=== PATIENT | female | born 1955 | race Native Hawaiian/Other Pacific Islander ===

== ENCOUNTER 2017-04-27 11:14 | Inpatient (IN) | payer MEDICAID ==
[2017-04-27 11:15] VITALS: BMI 27.1
[2017-04-27] MEDS ORDERED: Sodium Chloride 0.9% 1,000 ML IV ONE ×2 (11:42→16:14)
[2017-04-27] MEDS ORDERED: Sodium Chloride 0.9% 1,000 ML ONE ×2 (11:50→16:46)
[2017-04-27 12:07] LABS: BASO % 0.6 % (0.0-2.0); EOS # 0.2 K/uL (0.0-0.7); EOS % 2.2 % (0.0-4.0); HEMATOCRIT 42.8 % (34.0-47.0); LYMPH # 2.6 K/uL (1.0-4.3); LYMPH % 37.2 % (20.0-40.0); MEAN CELL VOLUME 87.5 fL (81.0-99.0); MEAN CORPUSCULAR HEMOGLOBIN 29.7 pg (27.0-31.0); MEAN CORPUSCULAR HGB CONC 33.9 g/dL (33.0-37.0); MEAN PLATELET VOLUME 7.7 fL (7.2-11.7); MONO # 0.5 K/uL (0.0-0.8); MONO % 6.5 % (0.0-10.0); RED CELL DISTRIBUTION WIDTH 14.3 % (11.5-14.5); WHITE BLOOD COUNT 7.1 K/uL (4.8-10.8)
[2017-04-27 12:28] LABS: RBC URINE < 1 /hpf (0-3); URINE BACTERIA OCC (<OCC); URINE BILIRUBIN NEGATIVE (NEGATIVE); URINE BLOOD NEGATIVE (NEGATIVE); URINE COLOR Straw (YELLOW); URINE GLUCOSE (UA) NORMAL (Normal); URINE KETONE NEGATIVE (NEGATIVE); URINE LEUKOCYTE ESTERASE 2+ Leu/uL (Negative); URINE PROTEIN NEGATIVE (NEGATIVE); URINE UROBILINOGEN NORMAL mg/dL (0.2-1.0); WBC URINE 28 /hpf (0-5)
[2017-04-27 12:57] LABS: ALB/GLOB RATIO 1.3 (1.0-2.1); ALKALINE PHOSPHATASE 162 U/L (38-126); ALT/SGPT 41 U/L (9-52); AST/SGOT 50 U/L (14-36); BILIRUBIN,TOTAL 0.6 mg/dL (0.2-1.3); BLOOD UREA NITROGEN 24 mg/dL (7-17); CALCIUM 9.3 mg/dl (8.6-10.4); CARBON DIOXIDE 30 mmol/L (22-30); CHLORIDE 104 mmol/L (98-107); GFR AFRICAN-AMERICAN > 60; GLUCOSE,RANDOM 104 mg/dL (65-105); POTASSIUM 4.3 mmol/L (3.6-5.2); SODIUM 141 mmol/L (132-148); TOTAL PROTEIN 7.8 g/dL (6.3-8.3)
--- NOTE | 2017-04-27 14:11 | C.PDOC ---
History Of Present Illness Patient presents to ED c/o feeling generalized weakness, lightheadedness when she was out with friends (standing). Patient has h/o metastatic breast CA, currently getting chemotherapy - herceptin (saturday was most recent). Other PMHx includes peripheral neuropathy, anemia, bronchitis, HTN, hyperlipidemia, CKD and seizure disorder. She states she has very little sensation in her lower legs, particularly at the bottom of her feet. She admits to prior episodes of similar sensation, and denies urinary retention or bowel/bladder inconitence. Patient also denies cough, fever, vomiting/diarrhea, dysuria, chest pain, SOB, visual changes, facial droop, slurred speech. Time Seen by Provider: 04/27/17 11:25 Chief Complaint (Nursing): Weakness/Neurological Deficit History Per: Patient History/Exam Limitations: no limitations Onset/Duration Of Symptoms: Mins Current Symptoms Are (Timing): Still Present Activity At Onset Of Symptoms: Standing Associated Symptoms Preceding Syncopal Episode: Lightheadedness Fall Associated With With Symptoms: No Severity: Moderate Past Medical History Reviewed: Historical Data, Nursing Documentation, Vital Signs Vital Signs: Last Vital Signs Temp 97.9 F 04/27/17 11:18 Pulse 65 04/27/17 17:10 Resp 18 04/27/17 17:10 BP 155/72 H 04/27/17 17:10 Pulse Ox 100 04/27/17 18:33 - Medical History PMH: Anemia, Bronchitis, Fractures (Right Wrist), Gall Bladder Disease, HTN, Hypercholesterolemia, Kidney Stones (Right kidney), Malignancy (metastatic breast), Chronic Kidney Disease, Seizures - [facility] Procedures INCIS W REM OF FORIEGN BODY OR DEV FROM SKIN & SUBCUT TISSUE (10/22/14) LYMPHATIC STRUCT BIOPSY (03/10/13) REMOV URETERAL DRAIN (12/18/13) RETROGRADE PYELOGRAM (09/18/13) TU REMOV URETER OBSTRUCT (09/18/13) URETERAL CATHETERIZATION (09/18/13) Family History: States: No Known Family Hx - Social History Hx Tobacco Use: No Hx Alcohol Use: No Hx Substance Use: No - Immunization History Hx Tetanus Toxoid Vaccination: No Hx Influenza Vaccination: No Hx Pneumococcal Vaccination: No Review Of Systems Except As Marked, All Systems Reviewed And Found Negative. Constitutional: Negative for: Fever, Chills Cardiovascular: Negative for: Chest Pain, Palpitations Respiratory: Negative for: Cough, Shortness of Breath Gastrointestinal: Positive for: Nausea. Negative for: Vomiting, Abdominal Pain , Diarrhea Genitourinary: Negative for: Dysuria, Hematuria Neurological: Positive for: Numbness (decreased sensation in B/L LEs), Dizziness (lightheadedness). Negative for: Confusion, Seizures, Headache Physical Exam - Physical Exam Appears: Well, Non-toxic, Other (tearful, mildly uncomfortable) Skin: Normal Color, Warm, Dry Head: Atraumatic, Normacephalic Eye(s): bilateral: Normal Inspection, PERRL, EOMI Oral Mucosa: Moist Cardiovascular: Rhythm Regular Respiratory: Normal Breath Sounds, No Rales, No Rhonchi, No Wheezing Gastrointestinal/Abdominal: Normal Exam, Bowel Sounds, Soft, No Tenderness Back: No CVA Tenderness, No Vertebral Tenderness, Paraspinal Tenderness (right sided paralumbar TTP at approx L3-L5 area) Extremity: Normal ROM, No Pedal Edema, No Calf Tenderness Pulses: Left Dorsalis Pedis: Normal, Right Dorsalis Pedis: Normal Neurological/Psych: Oriented x3, Normal Speech, Normal Cognition, Normal Cranial Nerves, No Cerebellar Signs, Normal Motor, No Normal Sensation ( decreased sensation B/L LEs), No Dysarthria, No Romberg ED Course And Treatment - Laboratory Results Result Diagrams: 04/27/17 12:00 04/27/17 12:00 O2 Sat by Pulse Oximetry: 100 (RA) Pulse Ox Interpretation: Normal - CT Scan/US Head CT Other Rad Studies (CT/US): Read By Radiologist, Radiology Report Reviewed CT/US Interpretation: Accession No. : [id number]. Patient Name / ID : LYNETTE MATHIS / [id number]. Exam Date : 04/27/2017 14:03:55 ( Approved ). Study Comment : Sex / Age : F / 61Y. Creator : Александр Dominugez MD. Dictator : Александр Dominguez MD. Shovel Operator : Crab Fisherman : Александр Dominguez MD. Approver2 : Report Date : 04/27/2017 14:28:44. My Comment : . PROCEDURE: CT HEAD WITHOUT CONTRAST. HISTORY: dizziness, headache, met breast CA. COMPARISON: Comparison is made to the previous study dated 02/17/2016. TECHNIQUE: Axial computed tomography images were obtained through the head/ brain without intravenous contrast. Radiation dose: Total exam DLP = 894.8 mGy -cm. This CT exam was performed using one or more of the following dose reduction techniques: Automated exposure control, adjustment of the mA and/or kV according to patient size, and/or use of iterative reconstruction technique. FINDINGS: HEMORRHAGE: No intracranial hemorrhage. BRAIN: No mass effect or edema. No atrophy or chronic microvascular ischemic changes. VENTRICLES: Unremarkable. No hydrocephalus. CALVARIUM: Unremarkable. PARANASAL SINUSES: Unremarkable as visualized. No significant inflammatory changes. MASTOID AIR CELLS: Unremarkable as visualized. No inflammatory changes. OTHER FINDINGS: None. IMPRESSION: No evidence of acute intracranial hemorrhage mass effect or midline shift. If clinically warranted further assessment by enhanced CT or MRI may be obtained. Progress Note: Blood work, UA, EKG, CT head ordered and reviewed. Patient given IV NS bolus. Reevaluation Time: 18:10 Reassessment Condition: Improved (Patient reassessed, continues to c/o dizziness (room spinning around her), only minimally improved after IV fluids, PO meclizine and IV ativan. Will discuss with Dr. Lew, pending call back.) - Physician Consult Information Physician Contacted: Aimee Lew Outcome Of Conversation: Discussed patient with hem/onc, will see patient on consult, states Dr. Landaverde is her neurologist - will also consult. Prior records reviewed, patient admitted several times to Dr. Charisse Caballero, will contact him for admission. NIHSS Stroke Scale - Date/Time Evaluation Performed Date Performed: 04/27/17 Time Performed: 11:18 When Was NIHSS Performed: Baseline - How Severe is the Stoke Level of Consciousness: 0=Alert LOC to Questions: 0=Both comments correct LOC to commands: 0=Obeys both correctly Best Gaze: 0=Normal Visual: 0=No visual loss Facial: 0=Normal Motor Arm - Left: 0=No drift Motor Arm - Right: 0=No drift Motor Leg - Left: 0=No drift Motor Leg - Right: 0=No drift Limb Ataxia: 0=Absent Sensory: 1=Mild to moderate loss (B/L feet) Best Language: 0=No aphasia Dysarthia: 0=Normal articulation Extinction & Inattention (Neglect): 0=Normal, no object Score: 1 Severity Of Stroke: 1-4= Minor Stroke rTPA Inclusion/Exclusion - Refusal of Treatment Patient Refused Treatment: No - Inclusion Criteria for Altepase Patient is 18 years or Older: Yes The Clinical Diagnosis of Ischemic Stroke That is Causing a Potentially Disabling Neurological Deficit: No Time of Onset is Well Established to be Less Than 270 Minute Before Treatment Would Begin: No Risk/Benefit Discussed With Patient/Family Member Present: No Disposition - Disposition
--- NOTE | 2017-04-27 14:30 | CT ---
PROCEDURE: CT HEAD WITHOUT CONTRAST. HISTORY: dizziness, headache, met breast CA COMPARISON: Comparison is made to the previous study dated 02/17/2016 TECHNIQUE: Axial computed tomography images were obtained through the head/brain without intravenous contrast. Radiation dose: Total exam DLP = 894.8 mGy-cm. This CT exam was performed using one or more of the following dose reduction techniques: Automated exposure control, adjustment of the mA and/or kV according to patient size, and/or use of iterative reconstruction technique. FINDINGS: HEMORRHAGE: No intracranial hemorrhage. BRAIN: No mass effect or edema. No atrophy or chronic microvascular ischemic changes. VENTRICLES: Unremarkable. No hydrocephalus. CALVARIUM: Unremarkable. PARANASAL SINUSES: Unremarkable as visualized. No significant inflammatory changes. MASTOID AIR CELLS: Unremarkable as visualized. No inflammatory changes. OTHER FINDINGS: None. IMPRESSION: No evidence of acute intracranial hemorrhage mass effect or midline shift. If clinically warranted further assessment by enhanced CT or MRI may be obtained.
--- NOTE | 2017-04-28 09:23 | RAD ---
PROCEDURE: CHEST RADIOGRAPH, 1 VIEW HISTORY: SOB COMPARISON: Comparison is made to 04/16/2016 FINDINGS: LUNGS: No evidence of new infiltrate or consolidation in the lungs. PLEURA: No pneumothorax or pleural fluid seen. CARDIOVASCULAR: The cardiac silhouette is mildly enlarged. Right-sided Infusaport is again seen in place. OSSEOUS STRUCTURES: No significant abnormalities. VISUALIZED UPPER ABDOMEN: Normal. OTHER FINDINGS: None. IMPRESSION: Mild cardiomegaly. No significant interval change since the previous exam.
[2017-04-28] MEDS: Enoxaparin 30 mg Syringe SC SCH (10:26)
[2017-04-28] MEDS: Pantoprazole 40 mg EC Tab PO SCH (10:26)
--- NOTE | 2017-04-28 12:12 | CP.PCM.HP ---
Past Patient History - Infectious Disease Hx of Infectious Diseases: None - Past Medical History & Family History Past Medical History?: Yes - Past Social History Smoking Status: Never Smoked - CARDIAC Hx Hypercholesterolemia: Yes Hx Hypertension: Yes - PULMONARY Hx Bronchitis: Yes - NEUROLOGICAL Hx Seizures: Yes - HEENT Hx HEENT Problems: No - RENAL Hx Chronic Kidney Disease: Yes Hx Kidney Stones: Yes (Right kidney) - ENDOCRINE/METABOLIC Hx Endocrine Disorders: No - HEMATOLOGICAL/ONCOLOGICAL Hx Anemia: Yes - INTEGUMENTARY Hx Dermatological Problems: No - MUSCULOSKELETAL/RHEUMATOLOGICAL Hx Falls: Yes - GASTROINTESTINAL Hx Gall Bladder Disease: Yes - GENITOURINARY/GYNECOLOGICAL Hx Genitourinary Disorders: Yes Hx Hematuria: Yes Hx Urinary Tract Infection: Yes Other/Comment: HAS STENTS - PSYCHIATRIC Hx Substance Use: No - SURGICAL HISTORY Hx Surgeries: Yes Hx Mastectomy: Yes (LEFT MASTECTOMY 2006) Hx Vascular Access Device: Yes (RT. CHEST) Other/Comment: CYSTO WITH STENTS LITHOTRIPSY /LUNG BIOPSY CT GUIDED - ANESTHESIA Hx Anesthesia: Yes Hx Anesthesia Reactions: No Hx Malignant Hyperthermia: No Has any member of the family had a problem w/ anesthesia?: No Meds Allergies/Adverse Reactions: Allergies Allergy/AdvReac Type Severity Reaction Status Date / Time lapatinib ditosylate AdvReac Verified 04/27/17 11:23 [From [facility]] Physical Exam - Constitutional Appears: Well - Head Exam Head Exam: ATRAUMATIC, NORMAL INSPECTION, NORMOCEPHALIC - Eye Exam Eye Exam: EOMI, Normal appearance, PERRL Pupil Exam: NORMAL ACCOMODATION, PERRL - ENT Exam ENT Exam: Mucous Membranes Moist, Normal Exam - Neck Exam Neck exam: Positive for: Normal Inspection - Respiratory Exam Respiratory Exam: Decreased Breath Sounds - Cardiovascular Exam Cardiovascular Exam: REGULAR RHYTHM, +S1, +S2 - GI/Abdominal Exam GI & Abdominal Exam: Diminished Bowel Sounds, Soft - Rectal Exam Rectal Exam: Deferred Results - Vital Signs Recent Vital Signs: Last Vital Signs Temp 98.3 F 04/28/17 08:45 Pulse 71 04/28/17 10:25 Resp 18 04/28/17 08:45 BP 123/74 04/28/17 10:25 Pulse Ox 96 04/28/17 08:45 - Labs Result Diagrams: 04/27/17 12:00 04/27/17 12:00 Labs: Laboratory Results - last 24 hr 04/27/17 04/27/17 12:00 12:09 Sodium 141 Potassium 4.3 Chloride 104 Carbon Dioxide 30 Anion Gap 12 BUN 24 H Creatinine 0.9 Est GFR ( Amer) > 60 Est GFR (Non-Af Amer) > 60 Random Glucose 104 Calcium 9.3 Total Bilirubin 0.6 AST 50 H ALT 41 Alkaline Phosphatase 162 H Total Creatine Kinase 66 Troponin I 0.0210 Total Protein 7.8 Albumin 4.4 Globulin 3.4 Albumin/Globulin Ratio 1.3 Urine Color Straw Urine Clarity Clear Urine pH 5.0 Ur Specific [place] 1.004 Urine Protein Negative Urine Glucose (UA) Normal Urine Ketones Negative Urine Blood Negative Urine Nitrate Negative Urine Bilirubin Negative Urine Urobilinogen Normal Ur Leukocyte Esterase 2+ H Urine WBC (Auto) 28 H Urine RBC (Auto) < 1 Urine Bacteria Occ H
--- NOTE | 2017-04-28 20:37 | CON ---
NEUROLOGY CONSULTATION REFERRING PHYSICIAN: Shaggy Caballero MD. REASON FOR CONSULTATION: Generalized weakness and syncope. HISTORY OF PRESENT ILLNESS: The patient is a 61 years old pleasant lady, right handed with past medical history of metastatic breast cancer with questionable metastasis to the brain as per the patient, hypertension, hyperlipidemia, seizure disorder, anemia, bronchitis, peripheral neuropathy. The patient was admitted because of an episode of near syncope and dizziness, diaphoresis, clamminess, cold associated with palpitation and nausea while she was standing. The patient was at a green party the night before and the patient contributed that she was probably exhausted. Although, the patient is complaining from dizziness while changing position vertically and had similar episode of near syncope and clamminess and cold, diaphoresis recently as well. The patient has been on chemotherapy and the patient was scheduled on Saturday, but the patient postponed it this week because of the friend's green party. The patient denies any double vision, blurred vision, photophobia, phonophobia. Complained from generalized fatigue and weakness. The patient states that she has no strength. The patient although was advised to use a walker, but the patient does not want to use it. PAST MEDICAL HISTORY: As mentioned above. SOCIAL HISTORY: No smoking, ethanol or drug abuser. MEDICATIONS: Meclizine, ceftriaxone, levetiracetam, enoxaparin, gabapentin, pantoprazole, lisinopril, lorazepam. PHYSICAL EXAMINATION: MENTAL STATE: The patient is alert, awake, oriented x3. Normal naming, repetition and comprehension. No agnosia. No apraxia. No right to left confusion. No finger agnosia. Double simultaneous stimulation intact. VITAL SIGNS: Blood pressure 155/72, pulse 65, respirations 18, temperature 97.9. CRANIAL NERVES: Pupils symmetrically reactive. No facial asymmetry. No field defect. V1 to V3 intact. Tongue midline. Gag intact. Accessory nerve intact. Neck flexion and extension 5/5. Motor: Normal tone in upper and lower extremities. No pronation drip. No tremors, action, postural. Upper extremities deltoid, elbow and supervisor purification overall 5-/5. Lower extremities 4+ to 5/5. Knee and ankle 5/5. Deep tendon reflexes 1 in upper extremities, absent in bilateral lower extremities, plantarflexion. Sensory: Pinprick, light touch symmetrical. Coordination: Ymxill-cb-phut intact. LABORATORY DATA: CAT scan of the brain, no evidence of acute intracranial abnormalities. IMPRESSION: The patient has syncope. It is most likely secondary to cerebellar hypoperfusion secondary to hypotension, possibility of autonomic neuropathy cannot be excluded secondary to the chemotherapy. 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 The patient has no reflexes in entire lower extremities. I have advised the patient to change position vertically cautiously and slowly. There is no need for EEG at this point or further workup unless MRI of the brain with and without contrast was not done. I will discuss the case with Dr. Akhil salgado if it was not done recently, although the patient has been seeing Dr. Landaverde and she was started on Keppra by him because of the seizures and abnormality on the EEG. Neurology wilder, no further workup recommended at this point. EEG will not change the management. Already the patient is on levetiracetam and the finding suggestive of postural hypotension rather than seizures. Thank you for the consultation and Dr. Landaverde will follow up the patient tomorrow. Ben Parikh MD
--- NOTE | 2017-04-29 09:48 | CP.PCM.PN ---
Subjective - Date & Time of Evaluation Date of Evaluation: 04/29/17 Time of Evaluation: 09:44 - Subjective Subjective: PGY-[address] Caballero's service: Pt seen and examined at bedside. Nursing reports no acute events overnight. Pt is for MRI Brain this AM. She reports her weakness/lightheadedness that she was admitted for on 04/27, has resolved. She is tearful, and is asking when she can go home. She denies bowel/bladder incontinence, SOB, chest pain, visual changes , surred speech, or facial droop. Objective - Vital Signs/Intake and Output Vital Signs (last 24 hours): Temp Pulse Resp BP Pulse Ox 98.2 F 62 18 133/68 97 04/29/17 07:15 04/29/17 07:15 04/29/17 07:15 04/29/17 07:15 04/29/17 07:15 - Medications Medications: Current Medications Aspirin (Ecotrin) 81 mg PO DAILY [facility] Enoxaparin Sodium (Lovenox) 30 mg SC DAILY [facility] Last Admin: 04/28/17 10:26 Dose: 30 mg Gabapentin (Neurontin) 300 mg PO BID [facility] Last Admin: 04/28/17 17:42 Dose: 300 mg Ceftriaxone Sodium 1 gm/ (Sodium Chloride) 100 mls @ 50 mls/30 min IVPB DAILY [facility] Last Admin: 04/28/17 10:26 Dose: 50 mls/30 min Levetiracetam (Keppra) 750 mg PO BID [facility] Last Admin: 04/28/17 17:41 Dose: 750 mg Lisinopril (Zestril) 5 mg PO DAILY [facility] Last Admin: 04/28/17 10:26 Dose: 5 mg Meclizine HCl (Antivert) 25 mg PO Q4 PRN PRN Reason: Dizziness Pantoprazole Sodium (Protonix Ec Tab) 40 mg PO DAILY [facility] Last Admin: 04/28/17 10:26 Dose: 40 mg - Labs Labs: 04/27/17 12:00 04/27/17 12:00 - Constitutional Appears: Non-toxic, No Acute Distress - Head Exam Head Exam: ATRAUMATIC, NORMAL INSPECTION - Eye Exam Eye Exam: EOMI, Normal appearance. absent: Scleral icterus Pupil Exam: PERRL - ENT Exam ENT Exam: Mucous Membranes Moist - Neck Exam Neck Exam: Full ROM - Respiratory Exam Respiratory Exam: Clear to Ausculation Bilateral, NORMAL BREATHING PATTERN. absent: Rales, Rhonchi, Wheezes - Cardiovascular Exam Cardiovascular Exam: REGULAR RHYTHM, +S1, +S2 - GI/Abdominal Exam GI & Abdominal Exam: Soft, Normal Bowel Sounds. absent: Tenderness - Extremities Exam Extremities Exam: Normal Inspection. absent: Calf Tenderness - Back Exam Back Exam: absent: CVA tenderness (L), CVA tenderness (R) - Neurological Exam Neurological Exam: Alert, Awake, Oriented x3 Neuro motor strength exam: Left Upper Extremity: 5, Right Upper Extremity: 5, Left Lower Extremity: 5, Right Lower Extremity: 5 Additional comments: Negative romberg, Finger to nose intact, no appreciable facial droop, or slurred speech - Psychiatric Exam Psychiatric exam: Normal Affect, Normal Mood - Skin Skin Exam: Normal Color, Warm Assessment and Plan - Assessment and Plan (Free Text) Plan: Syncopal episode Admit to telemetry Troponin negative x 1 CXR (04/27/17): Mild cardiomegaly CT Head (04/27/17): No acute abnormality f/u MRI (04/28/17): Focal signal abnormality in left superior cerebellum may represent an age indeterminate likely subacute or chronic infarction. No acute intracranial abnormality (see full report) f/u ECHO EEG: pt can receive as outpatient per Dr. Caballero Carotid Duplex (04/29/17): no stenosis b/l Neuro Consult Dr. Parikh/Akhil, help appreciated - most likely 2/2 cerebellar hypoperfusion (Hypotension) but autonomic neuropathy 2/2 chemotherapy remains in differential - pt with sensory neuropathy - if MRI negative, no further workup recommended ASA 81mg PO Daily Meclizine 25mg PO Q4H PRN Sensory neuropathy Neurontin 300mg PO BID Breast Cancer w. mets Hem/Onc Dr. Lew, help appreciated Pt treated with herceptin - last treatment, last saturday UTI UA (04/27/17): LE 2+, WBC 29, Occasional bacteria Ceftriaxone 1gm IV Daily (Day 2) Urine culture (04/27/17): No growth HTN Elevated over course Increase Lisinopril to 10 mg PO daily Hyperlipidemia Restart Crestor 20mg PO HS Seizure Disorder Sees Dr. Landaverde as outpatient Continue home Keppra Hx Anemia Hgb/MCV WNL Prophylaxis SCDs Lovenox 30mg SC Daily Protonix 40mg PO Daily Heart healthy Diet Disposition: Marked for discharge with caveat of pending results of MRI/ECHO/ Carotid US Roderick Casas PGY-2
--- NOTE | 2017-04-29 10:17 | MRI ---
PROCEDURE: MRI BRAIN WITHOUT CONTRAST HISTORY: [employer] STROKE COMPARISON: Noncontrast head CT from 04/27/2017. TECHNIQUE: Multiplanar, multisequence MR images of the brain were obtained without intravenous contrast enhancement. FINDINGS: HEMORRHAGE: None DWI: No evidence of an acute or early subacute infarction. BRAIN PARENCHYMA: There is a focal T2/FLAIR hyperintense lesion in the left superior cerebellum. There is no mass effect or abnormal extra-axial fluid collection. The midline sagittal structures are normal. VENTRICLES: There is mild age-related global parenchymal volume loss and proportionate enlargement of the ventricles and cortical sulci. CRANIUM: Unremarkable. ORBITS: Grossly unremarkable. PARANASAL SINUSES/MASTOIDS: Clear VASCULAR SYSTEM: Skull base flow voids intact. OTHER FINDINGS: None. IMPRESSION: 1. Focal signal abnormality in the left superior cerebellum may represent an age indeterminate likely subacute or chronic infarction. 2. No acute intracranial abnormality.
--- NOTE | 2017-04-29 10:46 | PN ---
NEUROLOGICAL FOLLOWUP EVALUATION DATE: 04/29/2017 REASON FOR THE FOLLOWUP EVALUATION: Near syncopal attacks. SUBJECTIVE: Patient was seen and evaluated by Dr. Ben Parikh, who was covering me over the weekend. Patient came to [facility] with a history of near syncopal attack, being evaluated and her consultation and workup is appreciated. Patient is presenting with deprived sleep with a preceding dancing and democrat without alcohol use. Slept a little hours overnight, woke up around 6:30 from the hotel, going to the restaurant, on her way, abrupt onset of lightheadedness and both leg feel like jelly and tend to about to fall. Immediately, in the restaurant, grabbed the chair, made her to sit down. No association with loss of vision or bulbar dysfunction. No history of double vision. Patient denies headache associating with this problem. She never had this problem in the past. No history of neck pain. No history of lower back pain. No bowel or bladder incontinence associating this event. PAST MEDICAL HISTORY: Significant for breast cancer, status post radiation and the chemotherapy. This is second chemotherapy, been on 5-FU. Patient had a history of seizures, being controlled with levetiracetam; painful neuropathy, being controlled with gabapentin. PHYSICAL EXAMINATION: VITAL SIGNS: Blood pressure 131/76, mean artery pressure of 94, respiratory rate 18, temperature afebrile. NECK: Supple. No carotid bruits. HEART: Sounds regular. CHEST: Fair air entry. EXTREMITIES: No edema in legs. NEUROLOGICAL: Her speech is clear. Mentation is clear. Cranial nerve examination: Extraocular movement normal. No nystagmus. No facial sensory deficit. No facial asymmetry. Hearing is normal. Tongue is midline. Good gag. Motor examination: No drift. Power is symmetric on all 4 extremities. Deep tendon reflexes trace. Plantars are downgoing. Sensory examination: Grossly intact. No cortical sensory loss. Coordination: Hhdple-eioo-gmltxa test is intact. DIAGNOSTIC AND LABORATORY DATA: Her recent workup is CT of the head reported as negative for acute pathology. Blood workup: WBC 7.1, hemoglobin 14.5, hematocrit 42.8, platelet 260. Sodium 141, potassium 4.3, chloride 104, bicarbonate 30, BUN 24, GFR more than 60, AST 50, ALT 41, alkaline phosphatase 162. Urinalysis shows esterase 2+, bacteria occasional. CONCLUSION: Ms. Marisabel Ascencio has been presenting with orthostatic hypotension versus vertebral basilar insufficiency related to hypoperfusion to the brainstem. This is probably related to autonomic dysfunction versus transient ischemic attack. Though the presentation does not look like seizure activities, it could be prodromal symptoms related to her seizures. Patient's neuropathy is preexisting condition. RECOMMENDATIONS: 1. Patient should have MRI of the brain to rule out any structural cause. 2. Carotid Doppler. 3. Echocardiogram. 4. EEG. 5. Continue Keppra for her seizures. Patient can be benefited by adding antiplatelets to prevent ischemic process. 6. Patient should be kept on telemetry. The patient will be followed closely with you. Yong Landaverde MD
[2017-04-29] MEDS: Enoxaparin 30 mg Syringe SC SCH (11:45)
[2017-04-29] MEDS: Pantoprazole 40 mg EC Tab PO SCH (11:45)
--- NOTE | 2017-04-29 13:55 | VASCLAB ---
PROCEDURE: HISTORY: Dizziness COMPARISON: None available. TECHNIQUE: Grayscale and duplex Doppler evaluation of the cervical carotid and vertebral arteries were performed. The common carotid, carotid bifurcations and cervical Internal Carotid Artery (ICA) and proximal External Carotid Artery (ECA) were evaluated. The vertebral arteries were evaluated for gross patency and flow direction. Report prepared by OTTONIEL Dietz FINDINGS: RIGHT CAROTID ARTERIES: 1. Common Carotid Artery: No significant focal plaque formation of the right common carotid artery. Maximum Peak Systolic velocity: 80 cm/sec: End-diastolic velocity 19 cm/sec. 2. Carotid Bifurcation: plaque formation. Maximum Peak Systolic velocity: 49 cm/sec: End-diastolic velocity 13 cm/sec. 3. Internal Carotid Artery: Plaque description: 3.1. Proximal Segment: Peak systolic velocity 63 cm/sec: End-diastolic velocity 17 cm/sec - % stenosis 0-15% 3.2. Middle Segment: Peak systolic velocity 82 cm/sec: End-diastolic velocity 30 cm/sec - % stenosis 0-15% 3.3. Distal Segment: Peak systolic velocity 94 cm/sec: End-diastolic velocity 31 cm/sec - % stenosis 0-15% 4. External Carotid Artery: No significant focal plaque formation. Peak systolic velocity 84 cm/sec 5. ICA/CCA Ratio: 1.2 LEFT CAROTID ARTERIES: 1. Common Carotid Artery: No significant focal plaque formation of the left common carotid artery. Maximum Peak Systolic velocity: 95 cm/sec: End-diastolic velocity 21 cm/sec. 2. Carotid Bifurcation: plaque formation. Maximum Peak Systolic velocity: 63 cm/sec: End-diastolic velocity 15 cm/sec. 3. Internal Carotid Artery: Plaque description: 3.1. Proximal Segment: Peak systolic velocity 62 cm/sec: End-diastolic velocity 20 cm/sec - % stenosis 0-15% 3.2. Middle Segment: Peak systolic velocity 88 cm/sec: End-diastolic velocity 29 cm/sec - % stenosis 0-15% 3.3. Distal Segment: Peak systolic velocity 58 cm/sec: End-diastolic velocity 23 cm/sec - % stenosis 0-15% 4. External Carotid Artery: No significant focal plaque formation. Peak systolic velocity 90 cm/sec 5. ICA/CCA Ratio: 1.1 VERTEBRAL ARTERIES: 1. Right Vertebral Artery: The right vertebral artery flow direction is antegrade. 2. Left Vertebral Artery: The left vertebral artery flow direction is antegrade. OTHER FINDINGS: 1. Right Brachial Blood pressure: 110 mmHg. 2. Left Brachial Blood pressure: Restricted extremity IMPRESSION: RIGHT: Duplex scan does not suggest hemodynamically significant stenosis of the right extracranial carotid arteries. LEFT: Duplex scan does not suggest hemodynamically significant stenosis of the left extracranial carotid arteries.
[2017-04-29 15:55] VITALS: RESP 20
--- NOTE | 2017-04-29 17:27 | CP.PCM.CON ---
History of Present Illness - History of Present Illness History of Present Illness: 61 yo woman with history of metastatic breast cancer, to liver, lungs, lymph nodes since 2006 when she underwent mastectomy for node positive, [id number] positive breast cancer. She is currently admitted with increasing vertigo, dizziness and ataxia. PMHX- Metastatic breast cancer, on and off chemo (herceptin based), tolerating fairly well except for worsening peripheral neuropathy History of b/l hydronephrosis, seizure disorder controlled on PO keppra, chronic vertigo Past Patient History - Infectious Disease Hx of Infectious Diseases: None - Past Medical History & Family History Past Medical History?: Yes - Past Social History Smoking Status: Never Smoked - CARDIAC Hx Hypercholesterolemia: Yes Hx Hypertension: Yes - PULMONARY Hx Bronchitis: Yes - NEUROLOGICAL Hx Seizures: Yes - HEENT Hx HEENT Problems: No - RENAL Hx Chronic Kidney Disease: Yes Hx Kidney Stones: Yes (Right kidney) - ENDOCRINE/METABOLIC Hx Endocrine Disorders: No - HEMATOLOGICAL/ONCOLOGICAL Hx Anemia: Yes - INTEGUMENTARY Hx Dermatological Problems: No - MUSCULOSKELETAL/RHEUMATOLOGICAL Hx Falls: Yes - GASTROINTESTINAL Hx Gall Bladder Disease: Yes - GENITOURINARY/GYNECOLOGICAL Hx Genitourinary Disorders: Yes Hx Hematuria: Yes Hx Urinary Tract Infection: Yes Other/Comment: HAS STENTS - PSYCHIATRIC Hx Substance Use: No - SURGICAL HISTORY Hx Surgeries: Yes Hx Mastectomy: Yes (LEFT MASTECTOMY 2006) Hx Vascular Access Device: Yes (RT. CHEST) Other/Comment: CYSTO WITH STENTS LITHOTRIPSY /LUNG BIOPSY CT GUIDED - ANESTHESIA Hx Anesthesia: Yes Hx Anesthesia Reactions: No Hx Malignant Hyperthermia: No Has any member of the family had a problem w/ anesthesia?: No Meds Allergies/Adverse Reactions: Allergies Allergy/AdvReac Type Severity Reaction Status Date / Time lapatinib ditosylate AdvReac Verified 04/27/17 11:23 [From Tyneo] - Medications Medications: Current Medications Aspirin (Ecotrin) 81 mg PO DAILY [facility] Last Admin: 04/29/17 11:44 Dose: 81 mg Enoxaparin Sodium (Lovenox) 30 mg SC DAILY [facility] Last Admin: 04/29/17 11:45 Dose: 30 mg Gabapentin (Neurontin) 300 mg PO BID [facility] Last Admin: 04/29/17 11:44 Dose: 300 mg Ceftriaxone Sodium 1 gm/ (Sodium Chloride) 100 mls @ 50 mls/30 min IVPB DAILY [facility] Last Admin: 04/29/17 11:45 Dose: 50 mls/30 min Levetiracetam (Keppra) 750 mg PO BID [facility] Last Admin: 04/29/17 11:45 Dose: 750 mg Lisinopril (Zestril) 10 mg PO DAILY [facility] Meclizine HCl (Antivert) 25 mg PO Q4 PRN PRN Reason: Dizziness Pantoprazole Sodium (Protonix Ec Tab) 40 mg PO DAILY [facility] Last Admin: 04/29/17 11:45 Dose: 40 mg Rosuvastatin Calcium (Crestor) 20 mg PO HS [facility] Results - Vital Signs Recent Vital Signs: Last Vital Signs Temp 98.2 F 04/29/17 15:49 Pulse 75 04/29/17 15:49 Resp 20 04/29/17 15:49 BP 121/69 04/29/17 15:49 Pulse Ox 99 04/29/17 15:49 - Labs Result Diagrams: 04/27/17 12:00 04/27/17 12:00
--- NOTE | 2017-04-29 19:04 | CP.PCM.PN ---
Subjective - Date & Time of Evaluation Date of Evaluation: 04/29/17 Time of Evaluation: 11:20 - Subjective Subjective: clinically same Objective - Vital Signs/Intake and Output Vital Signs (last 24 hours): Temp Pulse Resp BP Pulse Ox 98.2 F 75 20 121/69 99 04/29/17 15:49 04/29/17 15:49 04/29/17 15:49 04/29/17 15:49 04/29/17 15:49 - Medications Medications: Current Medications Aspirin (Ecotrin) 81 mg PO DAILY [facility] Last Admin: 04/29/17 11:44 Dose: 81 mg Enoxaparin Sodium (Lovenox) 30 mg SC DAILY [facility] Last Admin: 04/29/17 11:45 Dose: 30 mg Gabapentin (Neurontin) 300 mg PO BID [facility] Last Admin: 04/29/17 17:33 Dose: 300 mg Ceftriaxone Sodium 1 gm/ (Sodium Chloride) 100 mls @ 50 mls/30 min IVPB DAILY [facility] Last Admin: 04/29/17 11:45 Dose: 50 mls/30 min Levetiracetam (Keppra) 750 mg PO BID [facility] Last Admin: 04/29/17 17:33 Dose: 750 mg Lisinopril (Zestril) 10 mg PO DAILY [facility] Meclizine HCl (Antivert) 25 mg PO Q4 PRN PRN Reason: Dizziness Pantoprazole Sodium (Protonix Ec Tab) 40 mg PO DAILY [facility] Last Admin: 04/29/17 11:45 Dose: 40 mg Rosuvastatin Calcium (Crestor) 20 mg PO [facility] - Labs Labs: 04/27/17 12:00 04/27/17 12:00 - Constitutional Appears: Well - Head Exam Head Exam: ATRAUMATIC, NORMAL INSPECTION, NORMOCEPHALIC - Eye Exam Eye Exam: EOMI, Normal appearance, PERRL Pupil Exam: NORMAL ACCOMODATION, PERRL - ENT Exam ENT Exam: Mucous Membranes Moist, Normal Exam - Neck Exam Neck Exam: Full ROM, Normal Inspection. absent: Lymphadenopathy - Respiratory Exam Respiratory Exam: Decreased Breath Sounds - Cardiovascular Exam Cardiovascular Exam: REGULAR RHYTHM, +S1, +S2 - GI/Abdominal Exam GI & Abdominal Exam: Soft, Diminished Bowel Sounds - Rectal Exam Rectal Exam: Deferred
[2017-04-29] MEDS ORDERED: Acetaminophen-Codeine 300/30 mg Tab PO PRN (19:14)
--- NOTE | 2017-04-30 00:16 | CARD ---
APPROVED REPORT EXAM: Two-dimensional and M-mode echocardiogram with Doppler and color Doppler. Other Information Quality : GoodRhythm : INDICATION Chest Pain Syncope CARDIO EMBOLIGENESIS 2D DIMENSIONS IVSd1.1 (0.7-1.1cm)LVDd5.0 (3.9-5.9cm) PWd1.0 (0.7-1.1cm)LVDs3.6 (2.5-4.0cm) FS (%) 28.3 %LVEF (%)54.4 (>50%) M-Mode DIMENSIONS Left Atrium (MM)4.26 (2.5-4.0cm)Aortic Root2.80 (2.2-3.7cm) Aortic Cusp Exc.2.04 (1.5-2.0cm) Mitral Valve MV E Vulbjuws36.1cm/sMV A Srfwzbtj69.6cm/sE/A ratio1.0 TDI E/Lateral E'0.0E/Medial E'0.0 Tricuspid Valve TR Peak [id number]/sTR Peak Gr.[id number] LEFT VENTRICLE The left ventricle is normal size. There is borderline concentric left ventricular hypertrophy. Left ventricle systolic function is normal. The Ejection Fraction is 60-65%. There is normal LV segmental wall motion. Transmitral Doppler flow pattern is Grade I-abnormal relaxation pattern. There is no ventricular septal defect visualized. RIGHT VENTRICLE The right ventricle is normal size. The right ventricular systolic function is normal. ATRIA The left atrium is mildly dilated. The right atrium size is normal. AORTIC VALVE The aortic valve is tri-cuspid. The aortic valve is normal in structure. No aortic regurgitation is present. There is no aortic valvular stenosis. MITRAL VALVE The mitral valve is normal in structure. There is no evidence of mitral valve prolapse. Mitral regurgitation is trace. TRICUSPID VALVE The tricuspid valve is normal in structure. There is trace tricuspid regurgitation. Right ventricular systolic pressure is estimated at 30-40 mmHg. There is mild pulmonary hypertension. PULMONIC VALVE The pulmonary valve is normal in structure. There is trace to mild pulmonic valvular regurgitation. GREAT VESSELS The aortic root is normal in size. The ascending aorta is normal in size. The IVC is normal in size and collapses >50% with inspiration. PERICARDIAL EFFUSION There is no pericardial effusion. <Conclusion> There is borderline concentric left ventricular hypertrophy. Left ventricle systolic function is normal. The Ejection Fraction is 60-65%. Transmitral Doppler flow pattern is Grade I-abnormal relaxation pattern. Mitral regurgitation is trace. There is mild pulmonary hypertension.
[2017-04-30 04:48] VITALS: O2SAT 96
--- NOTE | 2017-04-30 07:48 | CP.PCM.PN ---
Subjective - Date & Time of Evaluation Date of Evaluation: 04/30/17 Time of Evaluation: 11:37 - Subjective Subjective: PGY2 Medicine Note for Dr. Charisse Caballero; all management as per Dr. Charisse Caballero This patient was seen and examined at bedside this AM; she is somewhat tearful and scared of her prognosis given that her cancer was spreading; she has appropriate support in place from /therapy/psychiatrist but seems to be holding in a lot of her feelings; emotional support was given. The patient states she feels great today and is ready to go home; she denies fevers/chills, REAVES, CP, SOB, abdominal pain, N/V/D, dysuria/freq/urg or lower extremity pain/ swelling. She is to f/u with cardiology for monitoring of her diastolic HF and also needs to fill prescriptions for lovenox SC daily 30mg and aspirin 81mg daily. Objective - Vital Signs/Intake and Output Vital Signs (last 24 hours): Temp Pulse Resp BP Pulse Ox 97.9 F 61 20 154/74 H 96 04/30/17 04:47 04/30/17 04:47 04/30/17 04:47 04/30/17 04:47 04/30/17 04:47 - Medications Medications: Current Medications Acetaminophen/Codeine Phosphate (Tylenol/Codeine 300 Mg/30 Mg) 1 ea PO Q6 PRN PRN Reason: Pain, Mild (1-3) Last Admin: 04/29/17 21:28 Dose: 1 ea Clopidogrel Bisulfate (Plavix) 75 mg PO DAILY [facility] Enoxaparin Sodium (Lovenox) 30 mg SC DAILY [facility] Last Admin: 04/29/17 11:45 Dose: 30 mg Famotidine (Pepcid) 20 mg PO BID [facility] Gabapentin (Neurontin) 300 mg PO BID [facility] Last Admin: 04/29/17 17:33 Dose: 300 mg Ceftriaxone Sodium 1 gm/ (Sodium Chloride) 100 mls @ 50 mls/30 min IVPB DAILY [facility] Last Admin: 04/29/17 11:45 Dose: 50 mls/30 min Levetiracetam (Keppra) 750 mg PO BID [facility] Last Admin: 04/29/17 17:33 Dose: 750 mg Lisinopril (Zestril) 10 mg PO DAILY [facility] Rosuvastatin Calcium (Crestor) 20 mg PO HS [facility] Last Admin: 12/11/17 21:28 Dose: 20 mg - Labs Labs: 04/27/17 12:00 04/27/17 12:00 - Constitutional Appears: Non-toxic - Head Exam Head Exam: ATRAUMATIC - Eye Exam Eye Exam: EOMI - ENT Exam ENT Exam: Mucous Membranes Moist - Neck Exam Neck Exam: Full ROM - Respiratory Exam Respiratory Exam: Clear to Ausculation Bilateral, NORMAL BREATHING PATTERN. absent: Rales, Rhonchi, Wheezes - Cardiovascular Exam Cardiovascular Exam: REGULAR RHYTHM, +S1, +S2 - GI/Abdominal Exam GI & Abdominal Exam: Soft, Normal Bowel Sounds. absent: Tenderness - Rectal Exam Rectal Exam: Deferred - Extremities Exam Extremities Exam: Full ROM. absent: Calf Tenderness - Back Exam Back Exam: NORMAL INSPECTION. absent: CVA tenderness (L), CVA tenderness (R) - Neurological Exam Neurological Exam: Alert, Awake, Normal Gait, Oriented x3 - Psychiatric Exam Psychiatric exam: Normal Affect - Skin Skin Exam: Warm Assessment and Plan - Assessment and Plan (Free Text) Assessment: Syncopal episode Admit to telemetry Troponin negative x 1 CXR (04/27/17): Mild cardiomegaly CT Head (04/27/17): No acute abnormality f/u MRI (04/28/17): Focal signal abnormality in left superior cerebellum may represent an age indeterminate likely subacute or chronic infarction. No acute intracranial abnormality (see full report) ECHO: shows normal EF with concentric hypertrophy with grade I diastolic dysfunction with mild mitral regurg -patient has diastolic CHF according to echo; patient will need to f/u with cardiology; is well known side effect of herceptin and should be getting echocardiograms regardless EEG: pt can receive as outpatient per Dr. Caballero Carotid Duplex (04/29/17): no stenosis b/l Neuro Consult Dr. Parikh/Akhil, help appreciated - most likely 2/2 cerebellar hypoperfusion (Hypotension) but autonomic neuropathy 2/2 chemotherapy remains in differential - pt with sensory neuropathy - if MRI negative, no further workup recommended ASA 81mg PO Daily Meclizine 25mg PO Q4H PRN Sensory neuropathy Neurontin 300mg PO BID Breast Cancer w. mets Hem/Onc Dr. Lew, help appreciated Pt treated with herceptin - last treatment, last saturday - lovenox sc for dvt prophylaxis while being treated for CA as outpatient UTI; resolved UA (04/27/17): LE 2+, WBC 29, Occasional bacteria Ceftriaxone 1gm IV Daily (Day 2) Urine culture (04/27/17): No growth HTN Elevated over course Increase Lisinopril to 10 mg PO daily Hyperlipidemia Restart Crestor 20mg PO HS Add aspirin 81?? Seizure Disorder Sees Dr. Landaverde as outpatient Continue home Keppra Hx Anemia Hgb/MCV WNL Prophylaxis SCDs Lovenox 30mg SC Daily Protonix 40mg PO Daily Heart healthy Diet Disposition: Marked for discharge with caveat of pending results of MRI/ECHO/ Carotid US -will add aspirin 81mg PO daily -will add lovenox 30mg SC daily for DVT/PE/Stroke prophylaxis The patient is stable for d/c as per Dr. Charisse Caballero All management as per Dr. Charisse Caballero Heart Failure Core Measure - Heart Failure Ejection Fraction: 40 % or Greater Left Ventricular Function to be assessed after discharge: Yes NIKITA Inhibitor Prescribed: Yes Beta-Apolinar Prescribed: None Contraindication/Reason for not providing: not indicated diastolic failure Angiotensin II Receptor Apolinar Prescribed: No Contraindication/Reason for not providing: on nikita AnticoagulationTherapy for Atrial Fibrillation/Atrialflutter: No Contraindication/Reason for not providing: not indicated Aldosterone Antagonist Prescribed: No Contraindication/Reason for not providing: not indicated Hydralazine Nitrate Prescribed: No Contraindication/Reason for not providing: not indicated Implantable Cardioverter Defibrillator Therapy: No Contraindication/Reason for not providing: not indicated Cardiac Resynchronization Therapy Prescribed: No Contraindication/Reason for not providing: not indicated - Follow up Will be discharged to: Home Follow Up Date (must be within 7 days from discharge): 04/30/17 Follow Up Time: 09:00
[2017-04-30 08:01] VITALS: BP 162/77; PULSE 78; TEMP 97.8
--- NOTE | 2017-04-30 08:41 | PN ---
DATE: 04/30/2017 NEUROLOGIC PROBLEM: Possible FRONT DESK LEAD stroke. PHYSICAL EXAMINATION: VITAL SIGNS: Blood pressure 154/75, mean arterial pressure of 100, respiratory rate 16, temperature 97.9, pulse rate 61 and regular. NEUROLOGIC: Patient is awake, alert, and oriented to person, place, and time. Still complaining of dizziness, she wants to deal with it. Examination showed mild dysmetria on her left as noted. Mild neuropathy, which is unchanged as before. No long tract sign found. MRI of the brain showed acute to subacute process of left superior cerebellar peduncle region infarction noted. Electroencephalogram, no epileptiform seizure activities. RECOMMENDATIONS: 1. Plavix is started. 2. MR angiogram to rule out vascular pathology. If patient is medically stable following MRA, patient can be discharged and should have a followup visit with me as outpatient. Yong Landaverde MD
[2017-04-30] MEDS: Enoxaparin 30 mg Syringe SC SCH (10:02)
--- NOTE | 2017-04-30 11:24 | MRI ---
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 TECHNIQUE: 3D time of flight MR angiography of the intracranial arteries was performed. Rotating maximum intensity projection images were generated. FINDINGS: INTERNAL CAROTID ARTERIES: Unremarkable. The skull base, petrous, cavernous and supraclinoid segments are bilaterally widely patient. ANTERIOR CEREBRAL ARTERIES: Unremarkable. A1 and A2 segments are widely patent. Smaller distal branches unremarkable, as visualized. MIDDLE CEREBRAL ARTERIES: Unremarkable. M1 and M2 segments are widely patent. Perisylvian branches grossly symmetric. POSTERIOR CIRCULATION: Basilar Artery: Appears patent without significant stenosis. Distal Vertebral Arteries: The right vertebral artery is unremarkable. The distal left vertebral artery segment appears persistent in origin but patent. Posterior Cerebral Arteries: Bilaterally patent without significant stenosis. The bilateral posterior communicating arteries appear robust providing potentially greater flow to their respective posterior cerebral arteries than the basilar artery. Posterior Inferior Cerebellar Arteries: Unremarkable. ANEURYSM/ VASCULAR MALFORMATIONS: None. OTHER FINDINGS: None. 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 The remainder of the examination appears unremarkable.
--- NOTE | 2017-04-30 11:29 | MRI ---
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 TECHNIQUE: 3D [id number] angiography of the neck was performed. Rotating maximum intensity projection images of the cervical carotid and vertebral arteries were generated. The origins of the common carotid arteries were not visualized, which is a limitation inherent to the non-contrast time of flight technique. FINDINGS: RIGHT CAROTID ARTERIES: Common Carotid Artery: Normal. Carotid Bifurcation: Limited carotid bulbar atherosclerotic plaque is appreciated. Internal Carotid Artery:Widely patent without significant stenosis. External Carotid Artery (proximal branches): Normal. LEFT CAROTID ARTERIES: Common Carotid Artery: Normal. Carotid Bifurcation: Limited carotid bulbar atherosclerotic plaque is appreciated. Internal Carotid Artery:Widely patent without significant stenosis. External Carotid Artery (proximal branches): Normal. VERTEBRAL ARTERIES: Right Vertebral Artery: Unremarkable. Left Vertebral Artery: The left vertebral artery is small throughout its entire course with the persistent origin segment seen distally with the artery is quite ectatic as it approaches the foramen magnum. A significant stenosis in this distal segment is difficult to completely exclude given the ectasis. It is poorly characterized on the reconstructed datasets and is evaluated on the basis of source images. OTHER FINDINGS: None. IMPRESSION: Widely patent bilateral common and internal carotid arteries in the neck with limited bilateral carotid bulbar atherosclerotic plaque identified. Widely patent right vertebral artery. A small left vertebral artery is appreciated with a persistent origin segment seen distally which becomes rather ectatic approaching the foramen magnum. Significant stenoses in this ectatic segment are not excluded due to the difficulty in evaluating the vessel due to ectasis here. It appears patent in its intracranial segment.
--- NOTE | 2017-04-30 14:26 | EEG ---
DATE: 04/29/2017 This is a 16-channel electroencephalogram of an awake and drowsy adult. During the study, photic stimulation was performed, hyperventilation was not performed. The resting electroencephalogram consists of 20 to 30 microvolts, low amplitude theta activities, which is followed with low alpha activities, which is about 7 to 8 Hz noted at the parietal and occipital leads. Anteriorly, fast activity superimposed with 2 to 3 Hz delta activities seen. Photic stimulation did not evoke driving response noted at 2 to 20 Hz. IMPRESSION: This is a normal electroencephalogram of awake and drowsy adult. During the study, neither electroencephalographic paroxysmal activities nor focal slowing noted. Yong Landaverde MD
== END 2017-04-30 13:34 | disposition home or self-care (01) | DRG 543 ==
LOC: C.ER 11:14 → C.9E 18:27 → C.6T 18:58
PROVIDERS: ADMIT Internal Medicine Nephrology; ATTEND Internal Medicine Nephrology
DX: I95.1 Orthostatic hypotension (principal); I50.30 Unspecified diastolic (congestive) heart failure; C50.919 Malignant neoplasm of unspecified site of unspecified female breast; I13.0 Hypertensive heart and chronic kidney disease with heart failure and stage 1 through stage 4 chronic kidney disease, or unspecified chronic kidney disease; G62.89 Other specified polyneuropathies; E78.5 Hyperlipidemia, unspecified; D64.9 Anemia, unspecified; N18.9 Chronic kidney disease, unspecified; N39.0 Urinary tract infection, site not specified; G40.909 Epilepsy, unspecified, not intractable, without status epilepticus; J40 Bronchitis, not specified as acute or chronic

== ENCOUNTER 2017-10-28 15:40 | Emergency (ER) | payer SELFPAY ==
[2017-10-28 15:42] VITALS: BMI 27.1
[2017-10-28] MEDS ORDERED: Sodium Chloride 0.9% 1,000 ML IV ONE (16:23)
[2017-10-28] MEDS ORDERED: Sodium Chloride 0.9% 1,000 ML ONE (16:42)
--- NOTE | 2017-10-28 17:09 | CT ---
PROCEDURE: CT HEAD WITHOUT CONTRAST. HISTORY: dizziness COMPARISON: 04/27/2017 TECHNIQUE: Axial computed tomography images were obtained through the head/brain without intravenous contrast. Radiation dose: Total exam DLP = 934.04 mGy-cm. This CT exam was performed using one or more of the following dose reduction techniques: Automated exposure control, adjustment of the mA and/or kV according to patient size, and/or use of iterative reconstruction technique. FINDINGS: HEMORRHAGE: No intracranial hemorrhage. BRAIN: No intracranial mass. No evidence of acute infarct. Small hyperdensity in the left thalamus which although slightly more prominent than on prior head CT, corresponds to a region of focal hyperintensity on MRI examinations dating back to July 2015 without change. Atypical. Not concerning for neoplasm or hemorrhage. VENTRICLES: Unremarkable. No hydrocephalus. CALVARIUM: Unremarkable. PARANASAL SINUSES: Unremarkable as visualized. No significant inflammatory changes. MASTOID AIR CELLS: Unremarkable as visualized. No inflammatory changes. OTHER FINDINGS: None. IMPRESSION: No intracranial mass, hemorrhage or evidence of acute infarct. Small nonspecific hyperdensity in the left thalamus corresponding to an area of stable high signal on FLAIR imaging dating back to 08/17/2015.
[2017-10-28 17:40] LABS: BASO # 0.1 K/uL (0.0-0.2); BASO % 0.9 % (0.0-2.0); EOS # 0.2 K/uL (0.0-0.7); EOS % 3.2 % (0.0-4.0); LYMPH # 2.3 K/uL (1.0-4.3); LYMPH % 36.6 % (20.0-40.0); MEAN CELL VOLUME 84.3 fL (81.0-99.0); MEAN CORPUSCULAR HEMOGLOBIN 28.5 pg (27.0-31.0); MEAN CORPUSCULAR HGB CONC 33.7 g/dL (33.0-37.0); MEAN PLATELET VOLUME 7.5 fL (7.2-11.7); MONO # 0.4 K/uL (0.0-0.8); MONO % 5.6 % (0.0-10.0); NEUT # 3.4 K/uL (1.8-7.0); NEUT % 53.7 % (50.0-75.0); NRBC % 0.5 % (0.0-2.0); RBC 4.93 Mil/uL (3.80-5.20); RED CELL DISTRIBUTION WIDTH 13.1 % (11.5-14.5); WHITE BLOOD COUNT 6.4 K/uL (4.8-10.8)
--- NOTE | 2017-10-28 17:46 | C.PDOC ---
History Of Present Illness 61 y/o female, w/PMHx of metastatic breast cancer with mastectomy of left breast , presents to the ER complaining of dizziness and weakness which began while she was standing outside earlier today. Patient states that she has nausea and epigastric abdominal discomfort. Otherwise, patient denies having vomiting and SOB. Time Seen by Provider: 10/28/17 15:54 Chief Complaint (Nursing): Weakness/Neurological Deficit History Per: Patient History/Exam Limitations: no limitations Onset/Duration Of Symptoms: Hrs Current Symptoms Are (Timing): Still Present Severity: Moderate Past Medical History Reviewed: Historical Data, Nursing Documentation, Vital Signs Vital Signs: Last Vital Signs Temp 98.5 F 10/28/17 15:46 Pulse 64 10/28/17 15:46 Resp 16 10/28/17 15:46 BP 130/66 10/28/17 15:46 Pulse Ox 100 10/28/17 18:55 - Medical History PMH: Anemia, Bronchitis, Fractures (Right Wrist), Gall Bladder Disease, HTN, Hypercholesterolemia, Kidney Stones (Right kidney), Malignancy (metastatic breast), Chronic Kidney Disease, Seizures Other Surgeries: Hx of surgeries - [facility] INCIS W REM OF FORIEGN BODY OR DEV FROM SKIN & SUBCUT TISSUE (10/22/14) LYMPHATIC STRUCT BIOPSY (03/10/13) REMOV URETERAL DRAIN (12/18/13) RETROGRADE PYELOGRAM (09/18/13) TU REMOV URETER OBSTRUCT (09/18/13) URETERAL CATHETERIZATION (09/18/13) Family History: States: No Known Family Hx - Social History Hx Tobacco Use: No Hx Alcohol Use: No Hx Substance Use: No - Immunization History Hx Tetanus Toxoid Vaccination: No Hx Influenza Vaccination: No Hx Pneumococcal Vaccination: No Review Of Systems Except As Marked, All Systems Reviewed And Found Negative. Constitutional: Negative for: Fever, Chills Respiratory: Negative for: Shortness of Breath Gastrointestinal: Positive for: Nausea. Negative for: Vomiting Neurological: Positive for: Dizziness Physical Exam - Physical Exam Appears: Non-toxic, No Acute Distress Skin: Normal Color, Warm, Dry Head: Atraumatic, Normacephalic Eye(s): bilateral: Normal Inspection Nose: Normal Oral Mucosa: Moist Neck: Supple Chest: Symmetrical Cardiovascular: Rhythm Regular Respiratory: Normal Breath Sounds, No Rales, No Rhonchi, No Wheezing Gastrointestinal/Abdominal: Bowel Sounds ((+) bowel sounds), Soft, Tenderness ( epigastric tenderness), No Guarding, No Rebound Extremity: Normal ROM Neurological/Psych: Oriented x3, Normal Speech, Normal Motor, Normal Sensation, Other ((-) facial droop) ED Course And Treatment - Laboratory Results Result Diagrams: 10/28/17 17:33 10/28/17 18:25 O2 Sat by Pulse Oximetry: 100 (RA) Pulse Ox Interpretation: Normal - CT Scan/US CT- Head Other Rad Studies (CT/US): Read By Radiologist, Radiology Report Reviewed CT/US Interpretation: PROCEDURE: CT HEAD WITHOUT CONTRAST. HISTORY: dizziness. COMPARISON: 04/27/2017. TECHNIQUE: Axial computed tomography images were obtained through the head/brain without intravenous contrast. Radiation dose: Total exam DLP = 934.04 mGy-cm. This CT exam was performed using one or more of the following dose reduction techniques: Automated exposure control, adjustment of the mA and/or kV according to patient size, and/ or use of iterative reconstruction technique. FINDINGS: HEMORRHAGE: No intracranial hemorrhage. BRAIN: No intracranial mass. No evidence of acute infarct. Small hyperdensity in the left thalamus which although slightly more prominent than on prior head CT, corresponds to a region of focal hyperintensity on MRI examinations dating back to July 2015 without change. Atypical. Not concerning for neoplasm or hemorrhage. VENTRICLES: Unremarkable. No hydrocephalus. CALVARIUM: Unremarkable. PARANASAL SINUSES: Unremarkable as visualized. No significant inflammatory changes. MASTOID AIR CELLS: Unremarkable as visualized. No inflammatory changes. OTHER FINDINGS: None. IMPRESSION: No intracranial mass, hemorrhage or evidence of acute infarct. Small nonspecific hyperdensity in the left thalamus corresponding to an area of stable high signal on FLAIR imaging dating back to 08/17/2015. Medical Decision Making Medical Decision Making: Assessment: Near- Syncope, Abdominal Discomfort Plan: --Labs --CT - Head --CXR --Pepcid IV --Zofran IV --IV Fluids Disposition - Disposition Disposition Time: 19:00 Condition: STABLE Forms: [facility] (Malay) - Clinical Impression Clinical Impression: Near syncope - Scribe Statement The provider has reviewed the documentation as recorded by the Madison Higgins Provider Attestation: All medical record entries made by the Scribe were at my direction and personally dictated by me. I have reviewed the chart and agree that the record accurately reflects my personal performance of the history, physical exam, medical decision making, and the department course for this patient. I have also personally directed, reviewed, and agree with the discharge instructions and disposition. Physician Patient Turnover Patient Signed Over To: Tere Garcia Handoff Comments: imaging, reevaluation and disposition
[2017-10-28 18:10] LABS: SQUAMOUS EPITHIAL < 1 /hpf (0-5); URINE BACTERIA OCC (<OCC); URINE BILIRUBIN NEGATIVE (NEGATIVE); URINE BLOOD NEGATIVE (NEGATIVE); URINE CLARITY Clear (Clear); URINE COLOR Straw (YELLOW); URINE GLUCOSE (UA) NORMAL (Normal); URINE LEUKOCYTE ESTERASE TRACE Leu/uL (Negative); URINE PROTEIN NEGATIVE (NEGATIVE); URINE UROBILINOGEN NORMAL mg/dL (0.2-1.0)
[2017-10-28 18:41] LABS: ALT/SGPT 15 U/L (9-52); AST/SGOT 28 U/L (14-36); BLOOD UREA NITROGEN 16 mg/dL (7-17); CALCIUM 9.4 mg/dl (8.6-10.4); GFR AFRICAN-AMERICAN > 60; GFR NON-AFRICAN AMERICAN > 60; LIPASE 169 U/L (23-300)
[2017-10-28 18:52] LABS: B-TYPE NATRIURETIC PEPTIDE 848 pg/mL (0-900)
[2017-10-28] MEDS ORDERED: Iodixanol 320 MG/ML 100 ML BOTTLE IV ONE (19:36)
--- NOTE | 2017-10-28 22:22 | CT ---
EXAM: CT Angiography Chest With Intravenous Contrast EXAM DATE/TIME: 10/28/2017 6:42 PM CLINICAL HISTORY: 61 years old, female; Signs and symptoms; Other: Syncope; Additional info: Near syncope. Smart prep images included to show placement of anastasiya and hounsfeild unit threshold, injected via powerport cath TECHNIQUE: Axial computed tomographic angiography images of the chest with intravenous contrast using pulmonary embolism protocol. All CT scans at this facility use one or more dose reduction techniques, viz.: automated exposure control; ma/kV adjustment per patient size (including targeted exams where dose is matched to indication; i.e. head); or iterative reconstruction technique. MIP reconstructed images were created and reviewed. Coronal and sagittal reformatted images were created and reviewed. CONTRAST: 100 mL of VISIPAQUE administered intravenously. COMPARISON: Prior the chest of 2015-06-30 FINDINGS: PULMONARY ARTERIES: Exam is nondiagnostic for pulmonary emboli because of suboptimal contrast opacification of the pulmonary arteries. AORTA: No evidence of aortic dissection. LUNGS: Stable appearance of areas of linear scarring in the left lung anteriorly No evidence of significant focal consolidation/infiltrate in the lungs. No evidence of diffuse pulmonary vascular congestion. PLEURAL SPACE: Tiny left pleural effusion, a new finding. No pneumothorax is seen. HEART: Heart appears mildly to moderately enlarged. BONES/JOINTS: Bony structures appear demineralized. No evidence of diffuse bony lesions. SOFT TISSUES: Stable findings in the left anterior chest wall compatible with prior mastectomy. LYMPH NODES:Rounded soft tissue mass in the left axilla, also seen on the prior exam, enlarged in size, now measuring 4.5 x 3.5 cm maximally (previously 2.8 x 3.0 cm). This is suspicious for lymphadenopathy. No evidence of diffuse pathologic lymphadenopathy. GALLBLADDER AND BILE DUCTS: Cholelithiasis. A large gallstone is seen. No CT evidence of acute cholecystitis. ADRENALS: Low-density left adrenal lesion, measuring 2.6 cm maximally, mildly enlarged in size compared to the prior exam (previously 2.0 cm). This has overall benign features by CT. It has well-defined margins. KIDNEYS AND URETERS: Low density lesions in the left kidney, most likely representing cysts. The largest of these is an incompletely visualized probable parapelvic cyst, measuring 2.6 cm maximally TUBES, LINES AND DEVICES: Mediport catheter in place, which terminates in the superior vena cava. IMPRESSION: - Nondiagnostic exam for pulmonary emboli. - Tiny left pleural effusion. - 4.5 cm left axillary soft tissue mass, suspicious for lymphadenopathy. This is mildly enlarged compared to a prior CT. Further workup is recommended to exclude neoplastic lymphadenopathy. - 2.5 cm left adrenal lesion. This overall has benign features by CT, but it is mildly enlarged compared to the prior CT. Consider further evaluation with nonemergent adrenal MRI. - See above for remaining findings.
[2017-10-28 22:56] VITALS: BP 150/75; PULSE 82; RESP 20; TEMP 98.5; O2SAT 98
--- NOTE | 2017-10-29 10:22 | RAD ---
PROCEDURE: CHEST RADIOGRAPH, 1 VIEW HISTORY: chest pain COMPARISON: Chest radiograph dated 04/27/2017. FINDINGS: No change right subclavian PICC line tip in the SVC LUNGS: Slight elevation right hemidiaphragm again noted PLEURA: Minor right apical pleural thickening. No pneumothorax or pleural fluid seen. CARDIOVASCULAR: Heart appears mildly enlarged. OSSEOUS STRUCTURES: No significant abnormalities. VISUALIZED UPPER ABDOMEN: Normal. OTHER FINDINGS: None. IMPRESSION: No acute infiltrates. Minor right apical pleural thickening
== END 2017-10-28 22:55 | disposition home or self-care (01) ==
LOC: C.ER 15:40
DX: R55 Syncope and collapse (principal); I12.9 Hypertensive chronic kidney disease with stage 1 through stage 4 chronic kidney disease, or unspecified chronic kidney disease; N18.9 Chronic kidney disease, unspecified; D64.9 Anemia, unspecified; E78.00 Pure hypercholesterolemia, unspecified
CPT/HCPCS: 70450; 71045; 71275; 80053; 81001; 82948; 83690; 83880; 84484; 85025; 85378; 85610; 85730; 96361; 96374; 96375; 99285; J2405; J7030; Q9967

== ENCOUNTER 2018-09-29 09:52 | Outpatient (CLI) | payer MEDICAID | END 2018-09-29 09:53 | disposition home or self-care (01) | LOC: C.CARD 09:52 ==